=== PATIENT | female | born 1955 | race Caucasian/White ===

== ENCOUNTER 2025-01-19 04:40 | Observation (INO) | payer OTHER, SELFPAY ==
[2025-01-18 20:21] VITALS: BP 121/82
[2025-01-18 20:44] LABS: Hematocrit 45.5 % (37.0-47.0); Hemoglobin 15.2 g/dL (12.0-16.0); Mean Corp Hgb Conc. 33.4 g/dL (33.0-37.0); Mean Corpuscular Volume 92.5 fL (81.0-99.0); Red Cell Dist. Width 13.4 % (11.5-14.5)
[2025-01-18 21:02] LABS: Nucleated Red Blood Cells % 0 %
[2025-01-18 21:11] LABS: ALT (SGPT) 25 U/L (0-35); AST (SGOT) 28 U/L (14-36); Albumin 4.5 g/dl (3.5-5.0); Alkaline Phosphatase 79 U/L (38-126); Blood Urea Nitrogen 14 mg/dl (7-17); Calcium 9.9 mg/dl (8.4-10.2); Carbon Dioxide 26 mmol/L (22-30); Chloride 103 mmol/L (98-107); Glucose 116 mg/dl (70-99); Lipase 47 U/L (23-300); Potassium 4.5 mmol/L (3.5-5.1); Sodium 135 mmol/L (135-145); Total Protein 7.5 g/dl (6.3-8.2); eGFR > 60.00
[2025-01-18 21:26] VITALS: BMI 20.1
[2025-01-18 21:30] VITALS: BP 119/68
[2025-01-18 22:00] VITALS: BP 128/72
--- NOTE | 2025-01-18 22:16 | ED.GENMED ---
History of Present Illness
General
Chief Complaint: Abdominal Pain
Source: patient and spouse (ex )
Exam Limitations: none
Time Seen by Provider: 01/18/25 22:06
Nursing documentation reviewed up to this point in time: agreed with
History of Present Illness
History of Present Illness:
Note:
CHIEF COMPLAINT(S)
Headache, nausea, and bowel movement difficulties.
HISTORY OF PRESENT ILLNESS
The patient is a 69-year-old female presenting with persistent headache and nausea. The symptoms began while she was in bed. She denies any vomiting but reports significant nausea. She has not been experiencing diarrhea but mentions difficulty with
bowel movements. The patient states she smoked cigarettes as a contributing factor, which led her doctor to suggest a cardiac evaluation, though specific details of any cardiac concerns were not clarified.
Recently, she underwent blood tests as ordered by her primary care physician, which did not reveal significant abnormalities except for a questionable cardiac issue. The physician suggested a low dose CT test and the patient is in the process of
scheduling this appointment. For the nausea, ondansetron was called in for her today.
There are plans to conduct CT scans of both her abdomen and head to investigate the cause of her symptoms further. The headache is notably bothersome to her, and she is seeking relief from both this and her nausea.
SOCIAL HISTORY
The patient has smoked cigarettes in the past, although current smoking status is not explicitly stated.
REVIEW OF SYSTEMS
- Gastrointestinal: Nausea with no vomiting; noted difficulty with bowel movements and absence of diarrhea.
- Neurological: Persistent headache, unclear onset details.
- Respiratory: History of cigarette smoking mentioned.
PHYSICAL EXAM
General: Alert, no acute distress.
Skin: Warm, dry.
Head: Normocephalic, atraumatic.
Neck: Supple, trachea midline.
Eye Ears, nose, mouth and throat: Oral mucosa moist.
Cardiovascular: Normal peripheral perfusion, No edema.
Respiratory: Respirations are non-labored.
Gastrointestinal: Abdomen nondistended. mild epigastric tenderness
Back: Normal range of motion, Normal alignment.
Musculoskeletal: Normal ROM, normal strength.
Neurological: Alert and oriented to person, place, time, and situation, No focal neurological deficit observed.
Psychiatric: Cooperative, appropriate mood & affect.
PROBLEM LIST
Acute Problems:
- Headache
- Nausea
PLAN
- Obtain CT scans of the abdomen and head.
- Administer IV medication to alleviate nausea, possibly accompanied by Benadryl to assist with headache relief.
- Provide contrast material orally for the CT scan.
- Monitor patients comfort and adjust care as needed.
DIFFERENTIAL DIAGNOSIS
The Differential Diagnosis includes, in no particular order and is not limited to:
- Migraine
- Tension headache
- Hypertension-related headache
- Sinus headache
- Gastrointestinal disturbance
- Medication side effect
- Cardiac-related issues
- Peptic ulcer disease
- Brain lesion or tumor
- Dehydration or electrolyte imbalance.
CARE-UPDATE
01/19/25 - 03:00
CT shows thickening in the terminal ileum, suggesting possible infection, enteritis, or Crohns disease. Continued nausea and abdominal discomfort persist. Plan to admit to hospitalist for further management, including administration of IV fluids and
Zofran for symptom relief. CT head non acute disease.
Disposition:
SUMMARY OF ENCOUNTER
The patient, a 69-year-old female, presented to the emergency department with persistent headache and nausea. She reported significant nausea but no vomiting and difficulty with bowel movements. Her primary care physician had ordered blood tests
which showed a questionable cardiac issue, and further evaluations, including CT scans of the abdomen and head, were planned. Based on the findings, there is suspicion of enteritis, infection, or Crohns disease due to thickening in the terminal
ileum, causing ongoing nausea and abdominal discomfort. Hospital admission for further management was recommended to address her symptoms effectively.
DISPOSITION
Admission to hospitalist for further management.
ASSESSMENT
Persistent headache and nausea with possible gastrointestinal and cardiac involvement.
PLAN
- Admit to hospitalist for continuous management.
- Administer IV fluids and ondansetron (Zofran) for nausea relief.
- Address potential enteritis or infection, and evaluate for Crohns disease.
INDEPENDENT REVIEW OF LABS AND INTERPRETATION OF TESTS
My independent review of CT scans indicates thickening in the terminal ileum, suggesting possible infection or Crohns disease.
MEDICATION RECONCILIATION
Ondansetron (Zofran) was administered for nausea relief.
MEDICAL DECISION MAKING
-Complexity of Data Reviewed: Chronic conditions affecting care include potential gastrointestinal and cardiac issues. Differential Diagnosis includes migraine, tension headache, hypertension-related headache, sinus headache, gastrointestinal
disturbance, medication side effect, cardiac-related issues, peptic ulcer disease, brain lesion or tumor, dehydration, or electrolyte imbalance.
-Data:
Category 2
My independent interpretation of CT scans shows thickening in the terminal ileum.
Category 3
Discussion of management with the hospitalist, focusing on further evaluation and management of potential enteritis, infection, or Crohns disease.
DIAGNOSIS
Nausea, unspecified (R11.0)
Headache (R51.9)
Enteritis, unspecified (K52.9)
Phy Exam
Physical Exam
Physical Exam:
.
Course
Orders/Labs/Results
Orders:
Orders
01/18/25 20:10
EKG [Electrocardiogram (*1)] Urgent
Reason for Study: Chest Pain
EKG- Treatment ONCE
01/18/25 20:29
Complete Blood Count/With Diff Urgent
Comprehensive Metabolic Panel Urgent
Lipase Urgent
01/18/25 22:15
Diphenhydramine [Benadryl] 25 mg IV NOW STA
Iohexol [Omnipaque] See Protocol PO NOW STA
Metoclopramide [Reglan] 10 mg IV NOW STA
01/18/25 22:16
IV Insert/Care/Rem.- Treatment PRN
01/19/25
CT Abd/pel W Iv And Oral Contr Urgent
Reason For Exam: epigastric pain, poor appetitie
CT Head W/o Iv Contrast Urgent
Reason For Exam: headache, 2 days
01/19/25 01:42
Lactic Acid Q4H
Comment: CANCEL 2nd LACTIC ACID IF 1st LACTIC ACID IS LESS THAN 2
01/19/25 02:57
0.9% Sodium Chloride 1000 ml [Nss] 1,000 ml IV BOLUS
Ondansetron Injectable [Zofran] 4 mg IV NOW STA
Pantoprazole [Protonix IV] 40 mg IV NOW STA
01/19/25 03:37
Calprotectin, Fecal [S] Routine
Urinalysis Reflex To Culture Stat
Stool Culture Routine
PATSY Source: Feces/Stool
Specimen Description:
Stool For WBC Routine
PATSY Source: Feces/Stool
Specimen Description:
Stool for occult blood [Hemetest Stools] As Directed
01/19/25 03:38
Admit/Transfer Patient As Directed
Co-Sign Provider:
Level of Care: Observation services
Assign to:: Medical/Surgical
Physician / Group: Lea
Diagnosis: abdominal pain
Code Status As Directed
Resuscitation Status: Full Code
PRN Pain Medication Management As Directed
May give lesser potent ordered pain med per pt: Yes
preference::
Protocol:: Medication orders for pain may be administered in a
manner that supports deferring to patient preference
when the pt is:
- Requesting an ordered lesser potent pain medication.
Least to most potent pain medications are defined
as: acetaminophen < NSAID < tramadol < opioids
(morphine, oxycodone, hydromorphone).
- Requesting a lesser dose of the same medication IF
ORDERED.
- Requesting a less intrusive route of administration
if both routes are prescribed by the provider (PO <
IV).
01/19/25 03:41
Urine Drug Abuse Screen Routine
Abnormal Lab Results
01/18/25
20:29
WBC 13.6 H 10^3/uL
(4.8-10.8)
Abs Immat Gran (auto) 0.1 H 10^3/uL
(0-0.05)
Absolute Neuts (auto) 11.0 H 10^3/uL
(1.4-6.5)
Absolute Monos (auto) 1.1 H 10^3/uL
(0.1-0.6)
Neutrophils % 80.9 H %
(42.2-75.2)
Lymphocytes % 9.7 L %
(20.5-51.1)
Creatinine 0.5 L mg/dL
(0.6-1.0)
Glucose 116 H mg/dl
(70-99)
01/18/25 20:29
01/18/25 20:29
Vital Signs
Initial and Last Documented VS:
Initial Vital Signs
Temp Pulse Resp BP Pulse Ox
98.2 F 89 20 121/82 95
01/18/25 20:21 01/18/25 20:21 01/18/25 20:21 01/18/25 20:21 01/18/25 20:21
Last Documented Vital Signs
Temp Pulse Resp BP Pulse Ox
98.2 F 94 16 117/56 95
01/18/25 20:21 01/19/25 04:15 01/19/25 04:15 01/19/25 04:00 01/19/25 04:15
*Pulse Oximetry
SaO2: 96
Oxygen Mode of Delivery: Room air
Patient hypoxic: no
*Critical Care Note
Total Time (30-74mins, 75-104mins- exclusive of procedures): Not Applicable
ED Attending Note
-
Portions of this chart may have been created with voice recognition software.� Occasional wrong word or��sound alike� substitutions may have occurred due to the inherent limitations of voice recognition software.
Discharge Plan
Departure
Patient Disposition: Admit
Date of Disposition: 01/19/25
Time of Disposition: 03:00
Admit to: Med/Surg
Presentation/result/management discussed w/ accepting MD/DO: Hospitalist
Patient with high blood pressure during this ER visit?: Yes
Condition: Fair
Discharge Problem:
Enteritis, Ileitis, terminal, Nausea, Headache
Referrals:
Clement Bermudez MD [Family Provider]
Interventions
Interventions:
*Risk Screen - Suicide Last Done: 01/18/25 20:21
*General Assessment Last Done: 01/18/25 20:21
*Neglect/Abuse Screening Last Done: 01/18/25 21:26
*ED- Fall Risk Assessment Last Done: 01/18/25 21:26
*ED COVID-19 Vaccine History Last Done: 01/18/25 20:21
*ED Influenza Vaccine History Last Done: 01/18/25 20:21
PC-Qnaoyt-Itccwqfuwb Assessment Last Done: 01/18/25 22:51
Discharge Date and Time
Print Language: FRISIAN
[2025-01-18] MEDS: REGLAN 10 MG IV (22:39)
[2025-01-18] MEDS: BENADRYL 25 MG IV (22:39)
[2025-01-18] MEDS: OMNIPAQUE 50 ML PO (22:44)
[2025-01-18 23:24] VITALS: BP 124/79
[2025-01-19] VITALS (10 sets, daily range): BP systolic 96–130; BP diastolic 55–90; PULSE 72–78; BMI 19.4
--- NOTE | 2025-01-19 03:15 | HPS.HSE ---
Family Physician
-
Family Physician: Clement Bermudez
Chief Complaint
-
Nausea, headache
History of Present Illness
69-year-old with past medical history significant for anxiety, CAD status post stenting over 10 years ago, hyperlipidemia presenting to the emergency department with worsening abdominal symptoms.
Patient reports longstanding history of abdominal complaints which includes abdominal discomfort nausea and a decreased appetite. She states this has been going on for several months. She started taking cannabis edibles several months ago to help
with appetite but there was no improvement. She is unsure whether she has had any significant weight loss but she feels she has given changes in her dress. She denies any diarrhea. She denies any melena melena or hematochezia. She has not had
any fevers or chills. She does report night sweats. She has PMD evaluated her and is pending a low-dose CT chest. She is a smoker. She denies alcohol use. She reports that her last bowel movement was yesterday was normal. She especially came
to the emergency department today because for the last 2 days she has had more intense abdominal pain. She she also complains of some headache.
She is afebrile in the emergency department. Her blood pressure was 120/80 with a pulse of 90 and she is satting 98% on room air. WBC was 13.6 hemoglobin and platelets were normal. Electrolytes BUN/creatinine were normal. Glucose was normal. A
CT scan of the abdomen pelvis showed mild thickening in the terminal ileum which may represent infection or enteritis.
Medical History
Past Medical History
Past Medical History: Reports CAD, Hypercholesterolemia and Psychiatric (Anxiety)
Past Surgical History: Reports , Gynocological (Hysterectomy) and Tonsilectomy
Social History
Tobacco: Smoker
Alcohol: None
Drug: None
Personal: Single
Living: Alone
Employment: Employed
Family History
Family History: Not pertinent
Allergies / Home Medications
Allergies reflects when Allergies were last updated in [facility].
Home Medications with original date entered in [facility]
Allergy/Medication List:
Allergies
Allergy/AdvReac Type Severity Reaction Status Date / Time
No Known Allergies Allergy Unverified 01/18/25 20:20
Review of Systems
-
Constitutional: Reports Weight Loss
EENT: Reports No Symptoms
Respiratory: Reports No Symptoms
Cardiac: Reports No Symptoms
Abdomen/GI: Reports Nausea
: Reports No Symptoms
Musculoskeletal: Reports No Symptoms
Skin: Reports No Symptoms
Neurological: Reports Headache
Endocrine: Reports No Symptoms
Hematologic/Lymphatic: Reports No Symptoms
Psych: Reports No Symptoms
Physical Exam
Vital Signs
Vital Signs
Temp Pulse Resp BP Pulse Ox
98.2 F 90 18 123/79 98
01/18/25 20:21 01/19/25 02:30 01/19/25 02:30 01/19/25 02:00 01/19/25 02:30
Physical Exam
General: Well Developed, Well Nourished and No Apparent Distress
HEENT: NormoCephalic, Moist mucous membranes and Atraumatic
Respiratory: Clear
Cardiac: S1/S2 and Regular Rhythm; No Murmur or Rub
GI: Soft, Non Tender, Non Distended and Normal Bowel Sounds; No Organomegaly
Rectal: Deferred by Provider
Musculoskeletal: No Clubbing, No Cyanosis and No Edema
Skin: No Rash
Neuro: AO x 3 and Nonfocal/grossly intact
Laboratory Results
-
01/18/25 20:29
01/18/25 20:29
Laboratory Results
Lactic Acid Cancelled 01/19/25 05:45
Total Bilirubin 0.7 mg/dl (0.2-1.3) 01/18/25 20:29
AST 28 U/L (14-36) 01/18/25 20:29
ALT 25 U/L (0-35) 01/18/25 20:29
Alkaline Phosphatase 79 U/L (38-126) 01/18/25 20:29
Lipase 47 U/L (23-300) 01/18/25 20:29
Data Reviewed
-
CT Scan: Report Reviewed by me
Lab Data: Labs Reviewed by me
Impression/Plan
-
IMPRESSION:
69-year-old with history of anxiety, CAD status post tenting, hyperlipidemia presents to the emergency department with exacerbation of chronic abdominal pain and loss of appetite that has been present for several months for which she has been having
cannabis edibles which she stopped about 6 days ago. She has stopped taking weight loss. She reports night sweats. She has not had any significant evaluation for her symptoms. She came in today due to worsening abdominal discomfort and headache.
She has not had any fevers chills. She denies acute urinary symptoms but she is having urinary frequency and Emergency Department. Labs were unremarkable, she is hemodynamically stable. CT scan is somewhat positive with mild thickening of the
terminal ileum. Pain not associated with food intake.
PLAN:
Abdominal pain -chronic abdominal pain without diarrhea, vomiting, slightly worsened in the last 2 days and associated with some headache and nausea. CT scan shows terminal ileal inflammation. Suspect possibility of inflammatory bowel disease and
less likely an infectious enteritis. She may also cannabinoid induced discomfort. Unlikely mesenteric ischemia but cannot rule out entirely.
� Admit to MedSurg observation
� Obtain stool culture, WBCs, fecal calprotectin
� Check TSH, crp and ESR
� Check B12 and ferritin levels
� Pain control, antiemetics and IV hydration
- u/a, uds pending
� Possible GI consultation
DVT prophylaxis with Lovenox subcu
CODE STATUS - full code
[2025-01-19] MEDS: PROTONIX IV 40 MG IV (03:19)
[2025-01-19] MEDS: ZOFRAN 4 MG IV ×3 (03:19→20:58)
[2025-01-19] MEDS: NSS 1000 IV ×2 (03:19→05:35)
[2025-01-19 04:50] LABS: Urine Character Clear (Clear)
--- NOTE | 2025-01-19 04:53 | PTCARENOTE ---
pt received from ED on a stretcher; aaox3. Ambulated from stretcher into the room; unsteady and requiring assist x 1. Somewhat impulsive but following commands. Resp even and non-labored. Describing upper abdominal 'bruise'-like feeling which she
scores a '5' in severity. Oriented to room. Assisted into bed. Bed in lowest position and call de [place] santos in reach. Instructed to call for assist when getting oob. Continuing to monitor
[2025-01-19] MEDS: TYLENOL 650 MG PO ×2 (05:30→19:41)
[2025-01-19 05:34] LABS: Urine Red Blood Cell 0-2 /HPF (0-2); Urine Squamous Cell >30 /LPF (Few); Urine White Cell 0-2 /HPF (0-5)
[2025-01-19] MEDS: MAALOX 30 ML PO ×3 (05:59→16:30)
[2025-01-19] MEDS: ATIVAN 0.5 MG PO (05:59)
--- NOTE | 2025-01-19 06:00 | PTCARENOTE ---
medicated pt with tylenol for headache in frontal and occipital areas of her head. Medicated pt with maalox for abdominal discomfort and ativan for anxiety as requested. Continuing to monitor
[2025-01-19 07:09] LABS: Hematocrit 39.4 % (37.0-47.0); Hemoglobin 13.3 g/dL (12.0-16.0); Mean Corp Hgb Conc. 33.8 g/dL (33.0-37.0); Mean Corpuscular Volume 93.1 fL (81.0-99.0); Platelet Count 212 10^3/uL (130-400); Red Cell Dist. Width 13.4 % (11.5-14.5)
[2025-01-19 07:30] LABS: Blood Urea Nitrogen 11 mg/dl (7-17); Calcium 8.5 mg/dl (8.4-10.2); Carbon Dioxide 28 mmol/L (22-30); Chloride 106 mmol/L (98-107); Estimated Creatinine Clearance 62 ml/min; Glucose 91 mg/dl (70-99); HDL Cholesterol 35 mg/dl; LDL Cholesterol, Calculated 52 mg/dl; Lipase 53 U/L (23-300); Magnesium 1.8 mg/dl (1.6-2.3); Potassium 4.1 mmol/L (3.5-5.1); Sodium 137 mmol/L (135-145); Very Low Density Lipoprotein 17 mg/dl (0-30); eGFR > 60.00
[2025-01-19 07:31] LABS: C-Reactive Protein 71.60 mg/L (0.0-10.00)
[2025-01-19] MEDS: ROXICODONE 2.5 MG PO (09:20)
--- NOTE | 2025-01-19 10:47 | CON.GI ---
Consultation
-
Date/Time Consultation Requested: 01/19/25 8:20am
Date/Time Consultation Performed: 01/19/25 10:47am
Requesting Provider: Theron Gimenez
Performing Provider: Gunner Adams
Reason for Consultation: abd pain, terminal ileitis
Medical History
Chief Complaint / HPI
Chief Complaint: abd pain, terminal ileitis
History of Present Illness:
69yo female presents with several days of abd pain, nausea, vomited after taking TUMS. She also has felt unwell in general over last several months with weight loss, no appetite, night sweats, nausea. CT on admission shows mild thickening TI. Had
colonoscopy couple years ago at [facility] reportedly normal. No diarrhea, except after CT scan. Denies FH IBD.
Past Medical History
Past Medical History: Hypercholesterolemia
Past Surgical History: and Gynecological (Hysterectomy)
Social History
Tobacco: Smoker
Alcohol: None
Family History
Family History: Reviewed & Not Pertinent
Allergies / Home Medications
Allergy/AdvReac Type Severity Reaction Status Date / Time
No Known Allergies Allergy Unverified 01/18/25 20:20
�Medication �Instructions �Recorded
atorvastatin 40 mg tablet 40 mg PO DAILY 01/19/25
lorazepam 0.5 mg tablet 0.5 mg PO HS PRN anxiety 01/19/25
tramadol 50 mg disintegrating 50 mg PO PRN chronic back pain 01/19/25
tablet
Review of Systems
-
All other systems: A 12 pt ROS was Negative except as stated above in HPI
Vital Signs
Temp Pulse Resp BP Pulse Ox
98.4 F 72 16 109/71 95
01/19/25 08:47 01/19/25 08:47 01/19/25 08:47 01/19/25 08:47 01/19/25 08:47
Physical Exam
Exam
General: No Apparent Distress
HEENT: Normocephalic and Atraumatic
Respiratory: Non Labored Respirations
GI: Soft, Non Distended and Tender (Moderate tenderness RLQ)
Results
WBC 8.0 10^3/uL (4.8-10.8) 01/19/25 06:23
Hgb 13.3 g/dL (12.0-16.0) 01/19/25 06:23
Hct 39.4 % (37.0-47.0) 01/19/25 06:23
MCV 93.1 fL (81.0-99.0) 01/19/25 06:23
Plt Count 212 10^3/uL (130-400) 01/19/25 06:23
Absolute Neuts (auto) 11.0 10^3/uL (1.4-6.5) H 01/18/25 20:29
Sodium 137 mmol/L (135-145) 01/19/25 06:23
Potassium 4.1 mmol/L (3.5-5.1) 01/19/25 06:23
Chloride 106 mmol/L (98-107) 01/19/25 06:23
Carbon Dioxide 28 mmol/L (22-30) 01/19/25 06:23
BUN 11 mg/dl (7-17) 01/19/25 06:23
Creatinine 0.6 mg/dL (0.6-1.0) 01/19/25 06:23
Calcium 8.5 mg/dl (8.4-10.2) 01/19/25 06:23
Total Bilirubin 0.7 mg/dl (0.2-1.3) 01/18/25 20:29
AST 28 U/L (14-36) 01/18/25 20:29
ALT 25 U/L (0-35) 01/18/25 20:29
Alkaline Phosphatase 79 U/L (38-126) 01/18/25 20:29
Lipase 53 U/L (23-300) 01/19/25 06:23
Diagnostic Image Results:
Prior GI Procedures:
EGD:
Colonoscopy:
Assessment / Plan
-
Summary:69yo female presents with RLQ pain, nausea over last several days and generalized nausea, night sweats, weight loss 10# over last several months. CT shows terminal ileal mild thickening. Had colonoscopy 2 yrs ago at [facility] she believes
was normal. WBC 13.6--8.0
Impression:
RLQ pain
Mild terminal ileum thickening on CT
Weight loss
Nausea
Recommendations:
will start levaquin flagyl to treat mild teminal ileitis, possible infectious etiology but also possible IBD in DDx
Cont regular diet and see how she tolerates and responds to abx
Check stool cx, add c diff
Requested records of prior colonoscopy at [facility]. Rec repeat colonoscopy as outpt to eval TI if she improves, consider inpt if not improving
Will follow
-
-
Thank you for consultation and allowing me to participate in the patient's care. Please call the production scheduler GI physician during the after hours with any questions or concerns.
[2025-01-19] MEDS: FLAGYL 500 MG 100 IV ×2 (11:41→19:35)
[2025-01-19] MEDS: ROXICODONE 5 MG PO ×3 (12:52→20:58)
[2025-01-19] MEDS: LEVAQUIN 100 IV (12:53)
--- NOTE | 2025-01-19 14:18 | W.PN.UPDATE ---
Update Note
Progress Note Update
Nonbilling note
1. Terminal ileitis -right lower quadrant abdominal pain. No diarrhea. Reported night sweats and weight loss. Question of possible infectious etiology versus inflammatory bowel disease. GI evaluated and patient has been started on
fluoroquinolone/Flagyl. Stool studies have been collected and results pending. Added oxycodone for symptom control
2. Generalized anxiety disorder -added Xanax as needed for anxiety symptoms
[2025-01-19] MEDS: LOVENOX 40 MG SC (17:20)
[2025-01-19] MEDS: ALPRAZOLAM ODT 0.25 MG PO (18:09)
[2025-01-20] MEDS: NSS 1000 IV (00:11)
[2025-01-20] MEDS: ALPRAZOLAM ODT 0.25 MG PO ×3 (00:11→15:21)
[2025-01-20] MEDS: MAALOX 30 ML PO (00:11)
[2025-01-20] MEDS: IMODIUM 2 MG PO (01:00)
[2025-01-20] MEDS: TYLENOL 650 MG PO ×3 (01:38→16:14)
[2025-01-20] MEDS: FLAGYL 500 MG 100 IV ×3 (03:14→20:43)
[2025-01-20] MEDS: ROXICODONE 5 MG PO (03:14)
[2025-01-20 07:15] VITALS: BP 140/86
[2025-01-20 07:20] LABS: Hematocrit 39.9 % (37.0-47.0); Hemoglobin 13.3 g/dL (12.0-16.0); Mean Corp Hgb Conc. 33.3 g/dL (33.0-37.0); Mean Corpuscular Volume 94.5 fL (81.0-99.0); Platelet Count 212 10^3/uL (130-400); Red Cell Dist. Width 13.4 % (11.5-14.5)
[2025-01-20 07:55] LABS: Blood Urea Nitrogen 7 mg/dl (7-17); Calcium 8.1 mg/dl (8.4-10.2); Carbon Dioxide 30 mmol/L (22-30); Chloride 108 mmol/L (98-107); Estimated Creatinine Clearance 62 ml/min; Glucose 98 mg/dl (70-99); Potassium 3.8 mmol/L (3.5-5.1); Sodium 139 mmol/L (135-145); eGFR > 60.00
[2025-01-20 08:25] VITALS: BP 131/100; BP 140/86; BP 149/90; PULSE 73; PULSE 83; PULSE 99
--- NOTE | 2025-01-20 09:01 | W.PN.GI.CBS2 ---
Addendum entered and electronically signed by Gunner Adams MD 01/20/25 11:05:
I saw and examined the patient.
The [employer] or PA's note was reviewed and I agree with the note.
Comment: Abd pain is improving and she was holding off on pain meds to see if she still required it. Now having some recurrent pain
ABD soft mild RLQ tender with guarding
REC:
Cont levaquin/flagyl. Seems to be improving
Will add PO vanco to treat c diff Ag pos, toxin negative since she has abd pain, though no diarrhea
Switch to low res diet
Colonoscopy as outpt to evaluate ileitis if she continues to improve
Addendum entered and electronically signed by ZACH Chua 01/20/25 10:18:
pt also refusing further Lovenox shot due to pain. Will add compression stockings as alternative
Original Note:
Today's Communication / Plan
-
pt with some improvement did trial some thanksgiving food 01/19 but still with mild guarding
will decrease to low residue diet
cont abx
will review with Dr. Adams for abx with c-diff ag + tox neg
CRP 71.6, fecal dimitry pending
records from [place] requested but results pending
reviewed with pt for GI follow up and repeat colonoscopy outpatient-- she is agreeable
Assessment / Plan
-
Summary:69yo female presents with RLQ pain, nausea over last several days and generalized nausea, night sweats, weight loss 10# over last several months. CT shows terminal ileal mild thickening. Had colonoscopy 2 yrs ago at [facility] she believes
was normal. WBC 13.6--8.0
Impression:
RLQ pain
leukocytosis on admission now improved
elevated CRP
c-diff ag + tox neg
Mild terminal ileum thickening on CT
Weight loss
Nausea
Recommendations:
pt with some improvement did trial some thanksgiving food 01/19 but still with mild guarding
will decrease to low residue diet
cont abx
will review with Dr. Adams for abx with c-diff ag + tox neg
CRP 71.6, fecal dimitry pending
records from [place] requested but results pending
reviewed with pt for GI follow up and repeat colonoscopy outpatient-- she is agreeable
Subjective
Subjective
Date of Service: January 20, 2025
still with pain but some improvement in bloating . She did try some bite of thanksgiving food last PM without vomiting, but did have multiple loose stools after CT contrast
Objective
Data Reviewed
Laboratory Data:
Laboratory Results
01/20/25 06:50
01/20/25 06:50
Laboratory Results
Magnesium 1.8 mg/dl (1.6-2.3) 01/19/25 06:23
Total Bilirubin 0.7 mg/dl (0.2-1.3) 01/18/25 20:29
AST 28 U/L (14-36) 01/18/25 20:29
ALT 25 U/L (0-35) 01/18/25 20:29
Alkaline Phosphatase 79 U/L (38-126) 01/18/25 20:29
Lipase 53 U/L (23-300) 01/19/25 06:23
Vital Signs and I&O:
Vital Signs
Temp Pulse Resp BP Pulse Ox
98.2 F 73 16 140/86 98
01/20/25 07:15 01/20/25 07:15 01/20/25 07:15 01/20/25 07:15 01/20/25 07:15
I&O
01/19/25 01/20/25 01/21/25
06:59 06:59 06:59
Intake Total 2840 / 2840
Balance 2840 / 2840
Physical Exam
Physical Exam
HEENT: Anicteric and Moist mucous membranes
Cardiology: Normal Sinus Rhythm
Pulmonary: Clear
GI: Soft, Non Distended and Tender (diffuse with mild guarding )
Extremities: No Edema
Neuro: Non Focal
--- NOTE | 2025-01-20 09:46 | W.PN.HOSP.TC ---
Today's Communication/Plan
-
can stop further IVF
continue abx
follow stool culture report
Assessment / Plan
Assessment / Plan
1. Terminal ileitis
- right lower quadrant abdominal pain. No diarrhea. Reported night sweats and weight loss.
- Question of possible infectious etiology versus inflammatory bowel disease.
- GI evaluated and patient has been started on fluoroquinolone/Flagyl.
- Cdiff ag positive, bacterial culture report pending.
- Added oxycodone for symptom control
- Able to tolerate diet, advanced to LR diet
2. Generalized anxiety disorder
-added Xanax as needed for anxiety symptoms
3. HLD
- maintain on atorvastatin
4. Cdiff colonization
- denies previous h/o of cdiff colitis
- no further rx warranted
DVT PPX - scd
Full code
Anticipated Discharge: 24 - 48 hours
Subjective/Interval History
-
Date of Service: January 20, 2025
abd pain is better
no reported nausea/vomiting
Objective Data
-
Labs:
Laboratory Results
01/20/25
06:50
WBC 5.1
Hgb 13.3
Hct 39.9
Plt Count 212
Sodium 139
Potassium 3.8
Chloride 108 H
Carbon Dioxide 30
BUN 7
Creatinine 0.6
Glucose 98
Calcium 8.1 L
Vital Signs:
Vital Signs
Temp Pulse Resp BP Pulse Ox
98.2 F 73 16 140/86 98
01/20/25 07:15 01/20/25 07:15 01/20/25 07:15 01/20/25 07:15 01/20/25 07:15
I&O
01/19/25 01/20/25 01/21/25
06:59 06:59 06:59
Intake Total 2840 / 2840
Balance 2840 / 2840
Review of Systems
-
Respiratory: Reports No Symptoms
Cardiac: Reports No Symptoms
Abdomen/GI: Reports No Symptoms
Physical Exam
-
General: No Apparent Distress and Comfortable
HEENT: Negative Oxygen
GI: Tender (Lower abd ); Negative Soft
Neuro: Awake, Alert, Oriented, No Motor Deficits and Nonfocal/Grossly Intact
Psych: Calm
[2025-01-20 10:10] VITALS: BMI 19.4
[2025-01-20] MEDS: LEVAQUIN 100 IV (12:14)
[2025-01-20] MEDS: FIRVANQ 125 MG PO ×2 (12:21→17:03)
[2025-01-20] MEDS: NSS IV (13:33)
[2025-01-20 15:00] VITALS: BP 114/83
--- NOTE | 2025-01-20 16:53 | CM ---
Alert awake oriented patient who lives alone in a 1 story home with 0 steps to enter . She is independent in activates of daily living.She does drive .No adaptive devices.Observation letter explained copy given. Pt did not sign observation
letter.Letter on chart.
No VN in past . No SNF hx
Pharmacy [facility]
PCP Dr Bermudez
PLAN Home with no needs
[2025-01-20 23:12] VITALS: BP 117/80
[2025-01-21] MEDS: FIRVANQ 125 MG PO ×3 (01:09→11:47)
[2025-01-21] MEDS: ALPRAZOLAM ODT 0.25 MG PO ×2 (02:41→13:18)
[2025-01-21] MEDS: FLAGYL 500 MG 100 IV (03:25)
[2025-01-21] MEDS: FLUSH (NSS) 2 FLUSH IV (03:25)
[2025-01-21 07:42] VITALS: BP 115/71
[2025-01-21 07:43] VITALS: BP 115/71; BP 145/80; BP 145/82; PULSE 106; PULSE 87; PULSE 92
[2025-01-21 07:59] LABS: Hematocrit 42.7 % (37.0-47.0); Hemoglobin 14.7 g/dL (12.0-16.0); Mean Corp Hgb Conc. 34.4 g/dL (33.0-37.0); Mean Corpuscular Volume 90.5 fL (81.0-99.0); Platelet Count 267 10^3/uL (130-400); Red Cell Dist. Width 13.1 % (11.5-14.5)
[2025-01-21 08:27] LABS: Blood Urea Nitrogen 10 mg/dl (7-17); Calcium 8.5 mg/dl (8.4-10.2); Carbon Dioxide 27 mmol/L (22-30); Chloride 107 mmol/L (98-107); Estimated Creatinine Clearance 62 ml/min; Glucose 103 mg/dl (70-99); Potassium 3.9 mmol/L (3.5-5.1); Sodium 139 mmol/L (135-145); eGFR > 60.00
--- NOTE | 2025-01-21 10:49 | CM ---
Discharge home today
No CM needs
--- NOTE | 2025-01-21 11:05 | W.PN.GI.CBS2 ---
Today's Communication / Plan
-
OK for d/c
Possible infectious ileitis that is resolving
Rec PO vanco 125mg QID for a week to treat c diff Ag positive, toxin negative, though not entirely convisced she has toxigenic C diff
F/U in office to set up colonoscopy
Assessment / Plan
-
Summary:69yo female presents with RLQ pain, nausea over last several days and generalized nausea, night sweats, weight loss 10# over last several months. CT shows terminal ileal mild thickening. Had colonoscopy 2 yrs ago at [facility] she believes
was normal. WBC 13.6--8.0
Impression:
RLQ pain
leukocytosis on admission now improved
elevated CRP
c-diff ag + tox neg
Mild terminal ileum thickening on CT
Weight loss
Nausea
Subjective
Subjective
Date of Service: January 21, 2025
Feeling better. Abd pain nearly gone.
Objective
Data Reviewed
Laboratory Data:
Laboratory Results
01/21/25 07:31
01/21/25 07:31
Laboratory Results
Magnesium 1.8 mg/dl (1.6-2.3) 01/19/25 06:23
Total Bilirubin 0.7 mg/dl (0.2-1.3) 01/18/25 20:29
AST 28 U/L (14-36) 01/18/25 20:29
ALT 25 U/L (0-35) 01/18/25 20:29
Alkaline Phosphatase 79 U/L (38-126) 01/18/25 20:29
Lipase 53 U/L (23-300) 01/19/25 06:23
Vital Signs and I&O:
Vital Signs
Temp Pulse Resp BP Pulse Ox
98.2 F 87 16 115/71 98
01/21/25 07:42 01/21/25 07:42 01/21/25 07:42 01/21/25 07:42 01/21/25 07:42
I&O
01/20/25 01/21/25 01/22/25
06:59 06:59 06:59
Intake Total 2840 / 2840 2079
Balance 2840 / 2840 2079
Physical Exam
Physical Exam
GI: Soft, Non Distended and Non Tender
[2025-01-21] MEDS: FLUZONE HIGH-DOSE 2025-26 0.5 ML IM (11:42)
--- NOTE | 2025-01-21 12:30 | W.DCSUMMARY ---
Discharge Summary
Discharge Data
Date of Admission: 01/19/25
Date of Discharge: 01/21/25
-
Pending Results: No
Hospital Course
Discharging Physician : Dr Theron Gimenez
Disposition : To home
Primary care physician : Dr Clement Bermudez
Principal Discharge diagnosis :
Terminal ileitis
Colostrum difficile colonization
Chronic Discharge diagnosis :
Generalized anxiety disorder
Hyperlipidemia
Physical examination:
General: No Apparent Distress and Comfortable
HEENT: Negative Oxygen
GI: nontender, normal bowel sounds.
Neuro: Awake, Alert, Oriented, No Motor Deficits and Nonfocal/Grossly Intact
Psych: Calm
Hospital Course :
Patient is a 69-year-old female with a mentioned past medical history came to ER with ongoing lower abdominal discomfort/night sweats for few weeks. Patient did not have any significant change in bowel habits. CT abdomen pelvis done in ER was
showing changes of possible terminal ileal inflammation. GI was involved in care due to subacute nature of symptom onset. GI recommended for patient to be started on empiric antibiotic for coverage of bacterial small bowel infection. Patient had
stool studies sent for common pathological organism out of which C. difficile was positive without toxin productivity. Patient was diagnosed to have C. difficile colonization. With empiric antibiotic patient had improvement in symptoms. GI
recommended for patient to finish a 7-day course of oral vancomycin for C. difficile colonization as well. Patient is planned to follow-up with his GI in the office for further workup and possible colonoscopy.
Important imaging findings :
None
Procedure findings :
None
Discharge Plan
-
Patient Disposition: Home (Routine Discharge)
Discharge Diagnosis/Procedures: Terminal ileitis, Clostridium difficile colonization
Condition: Fair
Diet: Low Residue
Activity: As tolerated
Driving Restrictions: As prior to admission
Bathing Restrictions: OK to Shower
Referrals:
Gunner Adams MD [Active, Gastroenterology] - in four to six weeks
Clement Bermudez MD [Family Provider, Internal Medicine] - in one week
Prescriptions:
New
vancomycin 125 mg capsule
125 mg PO QID Qty: 28 0RF
Continued
atorvastatin 40 mg Tablet
40 mg PO DAILY
lorazepam 0.5 mg Tablet
0.5 mg PO HS PRN (Reason: anxiety)
tramadol 50 mg Tablet,Disintegrating
50 mg PO PRN (Reason: chronic back pain)
Discharge Orders:
Discharge Patient (As Directed); Ordered 01/21/25
Ordered By: Theron Gimenez
Discharge Date and Time
Print Language: SYRIAC
[2025-01-21 13:00] VITALS: BP 144/84
--- NOTE | 2025-01-21 13:00 | PTCARENOTE ---
Addendum entered by Odette Campos RN 01/21/25 14:04:
30 minute observation uneventful. Patient reports resolution of symptoms, and feels it was gas. Patient discharged to home.
Original Note:
As patient being discharged, patient starts to report intense pressure to R rib cage and R collar bone. Patient assisted back to bed. EKG preformed, as well as a set of vitals--all within normal limites. Patient reports symptoms improving. Dr. Gimenez
notified. Will administer PRN xanax and observe for 30 minutes.
[2025-01-21] MEDS: ALPRAZOLAM ODT PO (13:14)
[2025-01-23 22:28] LABS: Calprotectin, Fecal 1920 ug/g (<=49)
== END 2025-01-21 14:11 | disposition home or self-care (01) ==
LOC: 4 WEST ACU 04:40
PROVIDERS: Emergency Medicine; ADMITTING PHYSICIAN Internal Medicine; ATTENDING PHYSICIAN Hospitalist; CONSULT PHYSICIAN Specialist; EMERGENCY PHYSICIAN Emergency Medicine; FAMILY PHYSICIAN Family Medicine
DX: K50.00 Crohn's disease of small intestine without complications (principal); R11.0 Nausea; R51.9 Headache, unspecified; F17.210 Nicotine dependence, cigarettes, uncomplicated; R07.9 Chest pain, unspecified; K52.9 Noninfective gastroenteritis and colitis, unspecified; R10.31 Right lower quadrant pain; D72.829 Elevated white blood cell count, unspecified; R61 Generalized hyperhidrosis; I25.10 Atherosclerotic heart disease of native coronary artery without angina pectoris; E78.00 Pure hypercholesterolemia, unspecified; G89.29 Other chronic pain; R35.0 Frequency of micturition; F41.1 Generalized anxiety disorder; K63.89 Other specified diseases of intestine; M47.816 Spondylosis without myelopathy or radiculopathy, lumbar region; M47.817 Spondylosis without myelopathy or radiculopathy, lumbosacral region; M43.16 Spondylolisthesis, lumbar region; M43.17 Spondylolisthesis, lumbosacral region; R79.82 Elevated C-reactive protein (CRP); Z23 Encounter for immunization; Z60.2 Problems related to living alone; Z90.710 Acquired absence of both cervix and uterus; Z95.5 Presence of coronary angioplasty implant and graft; Z22.1 Carrier of other intestinal infectious diseases
CPT/HCPCS: 70450; 74177; 80048; 80053; 80061; 80306; 80307; 81003; 81015; 83605; 83690; 83735; 83993; 84443; 85025; 85027; 85652; 86140; 87045; 87046; 87086; 87324; 87427; 87449; 89055; 90662; 93005; 96361; 96374; 96375; 99285; G0008; G0378; Q9967